=== PATIENT | female | born 1965 | race Two or more races ===

== ENCOUNTER 2017-02-15 14:09 | Emergency (ER) | payer SELFPAY ==
[~2017-02-15] VITALS: Ht 167.6 cm; Wt 90.7 kg
[2017-02-15] MEDS ORDERED: HYDROmorphone HCL 2 MG/ML VL IV ONE (15:30)
[2017-02-15] MEDS ORDERED: MORPHINE SULF INJ 2 MG/ML SYRINGE 1ML IV ONE (15:30)
[2017-02-15] MEDS ORDERED: ONDANSETRON HCL 4 MG/2 ML VIAL IV ONE ×2 (15:30)
[2017-02-15] MEDS: ETOMIDATE (2MG/ML) 20ML VIAL IV ONE ×2 (15:37→16:11)
[2017-02-15 16:58] VITALS: BP 134/86
== END 2017-02-15 17:14 | disposition home or self-care (01) ==
LOC: ER 14:09
DX: S43.005A Unspecified dislocation of left shoulder joint, initial encounter (principal); R51 Headache; W01.0XXA Fall on same level from slipping, tripping and stumbling without subsequent striking against object, initial encounter; Y93.89 Activity, other specified; Y99.8 Other external cause status; Y92.89 Other specified places as the place of occurrence of the external cause
CPT/HCPCS: 23650; 70450; 73020; 73030; 73070; 96374; 96375; 99152; 99285; J1170; J2405